=== PATIENT | female | born 1935 | race Caucasian/White ===

== ENCOUNTER 2021-05-13 12:38 | Inpatient (IN) ==
[2021-05-13 13:35] LABS: Hematocrit (blood only) 46.2 % (37-47); Hemoglobin 15.2 g/dL (12.0-16.0); Mean Corpuscular Hemoglobin 29.3 pg (25-34); Mean Corpuscular Hgb Conc 32.9 g/dL (32-36); Mean Platelet Volume 11.7 fL (7.4-10.4); Platelet Count 216 K/uL (130-400); RDW Coefficient of Variation 13.8 % (11.5-14.5); RDW Standard Deviation 45.3 fL (36.4-46.3); Red Blood Count 5.19 M/uL (4.2-5.4); White Blood Count 7.54 K/uL (4.8-10.8)
[2021-05-13 13:50] LABS: Alanine Aminotransferase 23 U/L (12-78); Albumin Level 3.1 gm/dl (3.4-5.0); Aspartate Aminotransferase 36 U/L (15-37); BUN Creatinine Ratio 17.9 (10-20); Blood Urea Nitrogen 41 mg/dl (7-18); Calcium 9.2 mg/dl (8.5-10.1); Carbon Dioxide 22 mmol/L (21-32); Chloride 103 mmol/L (98-107); Est GFR (African American) 21.6 ml/min; Est GFR (Non-African American) 18.6 ml/min; Glucose 114 mg/dl (70-99); Potassium 4.4 mmol/L (3.5-5.1); Sodium 134 mmol/L (136-145)
[2021-05-13 13:53] LABS: Albumin Globulin Ratio 0.7 (0.9-2); Alkaline Phosphatase 80 U/L (45-117); Bilirubin,Total 1.2 mg/dl (0.2-1); Globulin 4.2 gm/dl (2.5-4.0); Total Protein 7.3 gm/dl (6.4-8.2)
[2021-05-13 13:56] LABS: Partial Thromboplastin Ratio 2.2; Prothrombin Time 69.7 Seconds (9.0-12.0)
[2021-05-13 14:13] LABS: Partial Thromboplastin Time 56.8 Seconds (21.0-31.0)
[2021-05-13 14:14] LABS: INR 8.1 (0.9-1.1)
[2021-05-13 15:00] LABS: Basophils # (auto) 0.02 K/uL (0-0.2); Basophils % (auto) 0.3 %; Echinocytes 1+; Eosinophils # (auto) 0.04 K/uL (0-0.5); Eosinophils % (auto) 0.5 %; Immature Granulocytes # (auto) 0.03 K/uL (0.00-0.02); Immature Granulocytes % (auto) 0.4 %; Lymphocytes # (auto) 1.05 K/uL (1.2-3.4); Lymphocytes % (auto) 13.9 %; Monocytes # (auto) 0.87 K/uL (0.11-0.59); Monocytes % (auto) 11.5 %; Neutrophils # (auto) 5.53 K/uL (1.4-6.5); Neutrophils % (auto) 73.4 %; Tear Drop Cells 1+
[2021-05-13] MEDS ORDERED: SODIUM CHLORIDE 0.9% 1000ML 1,000 ML IV ONE (15:21)
[2021-05-13] MEDS ORDERED: PHYTONADIONE 10 MG in SODIUM CHLORIDE 0.9% 50 ML IV ONE (15:24)
--- NOTE | 2021-05-13 15:36 | Emergency Department Note ---
Impression & Plan Acute GI bleeding, Elevated INR, DUNIA (acute kidney injury), Pneumonia due to COVID-19 virus ED Provider Note NAME: TYRELL CASEY AGE: 85 SEX: F : 1935 ARRIVES VIA: Walk-In INFORMANT: Patient ED PROVIDER(S): Loc Feldman DO CHIEF COMPLAINT: weak HPI: Patient is an 85-year-old female who presents ER for weakness. She notes that she has had dark tarry stools for the past week associated with diarrhea. She was going about 5-8 times a day. She admits to lightheadedness with moving. No belly pain. Denies any dysuria, urgency, or frequency. No headache or change in vision. No chest pain or shortness of breath. No other exacerbating or remitting factors. ROS: See above HPI for pertinent positives & negatives. A total of 10 systems reviewed and were otherwise negative. PAST MEDICAL HISTORY:See Below PAST SURGICAL HISTORY:See Below FAMILY HISTORY:See Below SOCIAL HISTORY:See Below HOME MEDICATIONS:See Below ALLERGIES:See Below VITALS:See Below PHYSICAL EXAMINATION: GENERAL: Sitting up in bed, alert, well appearing, well nourished, no distress, non-toxic EYE EXAM: normal conjunctiva. OROPHARYNX: no exudate, no erythema, lips, buccal mucosa, and tongue normal and mucous membranes are moist NECK: supple, no nuchal rigidity, no adenopathy, non-tender LUNGS: Clear to auscultation. Normal chest wall mechanics HEART: no murmurs, S1 normal and S2 normal ABDOMEN: abdomen soft, non-tender, normo-active bowel sounds, no masses, no rebound or guarding. BACK: Back is symmetrical on inspection and there is no deformity, no midline tenderness, no CVA tenderness. SKIN: no rashes and no bruising UPPER EXTREMITIES: upper extremities are grossly normal. LOWER EXTREMITIES: No pitting edema. NEURO EXAM: Normal sensorium, cranial nerves II-XII grossly intact, normal speech, no gross weakness of arms, no gross weakness of legs. MEDICAL DECISION MAKING: Patient is an 85-year-old female who presents the ER for 1 week of black stools/diarrhea got about 5-6 times a day. Admits to lightheadedness and weakne ss. IV was demonstrated was obtained. Labs show no significant leukocytosis or anemia. INR was elevated at 8.1. She is on the secondary to A. fib. BMP with a creatinine of 2.3 up from baseline of 1. LFTs bilirubin was unremarkable. Patient is Covid positive. Patient was typed and screened. She is given IV fluids. Pressures trended up from the 80s to low 100s. She was updated bedside. Discussed with the hospitalist. She was given IV vitamin K to reverse her Coumadin level. She does have a bioprosthetic valve but not a mechanical valve for mitral valve. She was updated admitted for further work-up. Triage Nursing notes reviewed. Limited review of prior medical records performed Vital Signs: reviewed and remarkable for no significant abnormalities Differential diagnosis: Infection, dehydration, metabolic abnormality, hypo/hyperglycemia, electrolyte disturbance, anemia, hypoxia, cardiac sources, intracerebral event, toxicologic, neurologic, as well as other pathologies. ER treatment provided: See below Diagnostics interpreted by me: ECG: A. fib rate 80 Right axis T wave inversion in septal leads QTC 459 Cardiac Monitoring: An order was placed for continuous cardiac monitoring. The monitor shows a rate of 82 with A. fib rhythm. Laboratory studies: As stated above and show below. Imaging studies: See below Consultation(s): Discussed the hospitalist for further evaluation Procedures: none Critical Care: I have personally spent 32 minutes of critical care time in the direct giovani gement of this patient. This includes bedside care, interpretation of diagnostic studies, and testing, discussion with consultants, patient, and family members, and other required patient management activities. This 32 minutes is in excess of all separately billable procedures. Past Med/Surg History Medical History Chronic diastolic heart failure Chronic kidney disease, stage 3 (moderate) Congestive heart failure COPD (chronic obstructive pulmonary disease) Coronary artery disease Dementia First degree AV block GERD (gastroesophageal reflux disease) Hyperlipidemia Hypertension Hypothyroidism Impaired fasting glucose Osteoarthritis Permanent atrial fibrillation Pulmonary hypertension Right bundle branch block 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 Surgical History H/O total hysterectomy with bilateral salpingo-oophorectomy (BSO) History of back surgery S/P aortic valve replacement with bioprosthetic valve (11/28/14) S/P appendectomy Family History Father Myocardial infarction Brother Lewy body dementia Sister Dementia Son , age 16 Leukemia Other Hypertension Denies family history of Ovarian cancer Prostate cancer Breast cancer Colorectal cancer Social History Smoking Status: Never smoker Second Hand Exposure: No; Hx Alcohol Use: Yes Hx Substance Use: No Visual Impairment: Limited Hearing Ability: Normal Senior Market Research Analyst Required: No Beliefs That Will Affect Care: None marital status: / Current Living Situation: Alone Current Living Situation Comment: at [facility] current occupational status: retired How many Children do You have: 3 How many Children do You have Comment: 1 daughter, 2 sons (lost son age 16 w/ leukemia) Feels Safe at Home: Yes caffeine: Yes during the past year weight has: remained stable Dental Care, Regularly: Yes Physical Activity Frequency: Daily Seatbelt Use: always Sunscreen Use: No Allergies Allergies Allergy/AdvReac Type Severity Reaction Status Date / Time No Known Drug Allergies Allergy nkda Verified 05/13/21 16:25 Home Meds Home Medications Medication Instructions Recorded Confirmed sertraline 25 mg tablet 50 mg PO DAILY tab 09/19/20 05/13/21 alendronate 70 mg tablet (Fosamax) 70 mg PO WK tab 05/02/21 05/13/21 dorzolamide 22.3 mg-timolol 6.8 1 drp OPB BID 05/13/21 05/13/21 mg/mL eye drops latanoprost 0.005 % eye drops 1 drp OPB HS 05/13/21 05/13/21 polyethylene glycol 3350 17 17 gm PO DAILY PRN 05/13/21 05/13/21 gram/dose oral powder (Miralax) warfarin 2 mg tablet 2 mg PO UD 05/13/21 05/13/21 Previous Rx's Medication Instructions Recorded calcium carbonate 600 mg (1,500 1 tab PO BID #60 tab 01/12/20 mg)-vitamin D3 200 unit tablet (Calcium 600 + D(3)) amlodipine 5 mg tablet 5 mg PO BID #180 tab 10/01/20 furosemide 20 mg tablet 10 mg PO DAILY #45 tab 10/04/20 losartan 100 mg tablet 100 mg PO DAILY #90 tab 12/06/20 metoprolol succinate 25 mg 25 mg PO DAILY #90 tab 12/06/20 tablet,extended release 24 hr spironolactone 25 mg tablet 12.5 mg PO DAILY #45 tab 12/11/20 trazodone 50 mg tablet 25 mg PO HS #90 tab 03/13/21 atorvastatin 80 mg tablet 80 mg PO DAILY #90 tab 03/21/21 donepezil 5 mg tablet 5 mg PO DAILY 90 Days #90 tab 04/02/21 levothyroxine 50 mcg tablet 50 mcg PO DAILY #90 tab 04/24/21 Results & Data (ED) Vital Signs Vital Signs - 24 hr 05/13/21 12:47 05/13/21 15:47 05/13/21 16:01 Temperature 36.5 C Temperature Source Temporal Artery Scan Pulse Rate 90 77 Pulse Rate [Apical] Pulse Rate from SpO2 Sensor Respiratory Rate 18 17 Respiratory Effort / Characteristics Respiratory Depth Respiratory Pattern Blood Pressure 86/56 L 89/59 L 108/52 L Blood Pressure [Right Arm] Blood Pressure Mean 66 69 70 Blood Pressure Mean [Right Arm] Pulse Oximetry 92 Oxygen Delivery Method Room Air Sepsis Recent Fever Within 48 Hours No Sepsis New/Unexplained Change in Mental Status No Sepsis Action Taken by Nursing No Action Required 05/13/21 16:05 05/13/21 16:30 05/13/21 17:00 Temperature Temperature Source Pulse Rate 77 73 Pulse Rate [Apical] 78 Pulse Rate from SpO2 Sensor 72 Respiratory Rate 20 20 17 Respiratory Effort / Characteristics Non-Labored Spontaneous Respiratory Depth Normal Respiratory Pattern Regular Blood Pressure 103/63 91/48 L Blood Pressure [Right Arm] 108/52 L Blood Pressure Mean 76 62 Blood Pressure Mean [Right Arm] 70 Pulse Oximetry 94 97 Oxygen Delivery Method Room Air Sepsis Recent Fever Within 48 Hours Sepsis New/Unexplained Change in Mental Status Sepsis Action Taken by Nursing 05/13/21 17:30 Temperature Temperature Source Pulse Rate 77 Pulse Rate [Apical] Pulse Rate from SpO2 Sensor 83 Respiratory Rate 22 Respiratory Effort / Characteristics Respiratory Depth Respiratory Pattern Blood Pressure 102/51 L Blood Pressure [Right Arm] Blood Pressure Mean 68 Blood Pressure Mean [Right Arm] Pulse Oximetry 96 Oxygen Delivery Method Sepsis Recent Fever Within 48 Hours Sepsis New/Unexplained Change in Mental Status Sepsis Action Taken by Nursing Laboratory Data Result diagrams: 05/13/21 12:54 05/13/21 12:54 Lab Results 08/23/21 08/23/21 08/23/21 Range/Units 12:54 12:54 12:54 WBC 7.54 (4.8-10.8) K/uL RBC 5.19 (4.2-5.4) M/uL Hgb 15.2 (12.0-16.0) g/dL Hct 46.2 (37-47) % MCV 89.0 (80-100) fL MCH 29.3 (25-34) pg MCHC 32.9 (32-36) g/dL RDW Std Deviation 45.3 (36.4-46.3) fL RDW Coeff of Jhon 13.8 (11.5-14.5) % Plt Count 216 (130-400) K/uL MPV 11.7 H (7.4-10.4) fL Immature Gran % (Auto) 0.4 % Neut % (Auto) 73.4 % Lymph % (Auto) 13.9 % Mccormick % (Auto) 11.5 % Eos % (Auto) 0.5 % Baso % (Auto) 0.3 % Neut # (Auto) 5.53 (1.4-6.5) K/uL Lymph # (Auto) 1.05 L (1.2-3.4) K/uL Mccormick # (Auto) 0.87 H (0.11-0.59) K/uL Eos # (Auto) 0.04 (0-0.5) K/uL Baso # (Auto) 0.02 (0-0.2) K/uL Immature Gran # (Auto) 0.03 H (0.00-0.02) K/uL Tear Drop Cells 1+ Echinocytes 1+ PT 69.7 H (9.0-12.0) Seconds INR 8.1 H* (0.9-1.1) APTT 56.8 H* (21.0-31.0) Seconds PTT Ratio 2.2 Sodium 134 L (136-145) mmol/L Potassium 4.4 (3.5-5.1) mmol/L Chloride 103 (98-107) mmol/L Carbon Dioxide 22 (21-32) mmol/L Anion Gap 9.0 (3-11) BUN 41 H (7-18) mg/dl Creatinine 2.30 H (0.6-1.2) mg/dl Est Cr Clr Drug Dosing Not Reportable Est GFR ( Amer) 21.6 ml/min Est GFR (Non-Af Amer) 18.6 ml/min BUN/Creatinine Ratio 17.9 (10-20) Glucose 114 H (70-99) mg/dl Calcium 9.2 (8.5-10.1) mg/dl Total Bilirubin 1.2 H (0.2-1) mg/dl AST 36 (15-37) U/L ALT 23 (12-78) U/L Alkaline Phosphatase 80 (45-117) U/L Troponin I (0-0.045) ng/ml Total Protein 7.3 (6.4-8.2) gm/dl Albumin 3.1 L (3.4-5.0) gm/dl Globulin 4.2 H (2.5-4.0) gm/dl Albumin/Globulin Ratio 0.7 L (0.9-2) COVID-19 Eval Order SARS-CoV-2 (PCR) (Negative) Blood Type Antibody Screen 05/13/21 05/13/21 05/13/21 Range/Units 12:54 13:20 16:09 WBC (4.8-10.8) K/uL RBC (4.2-5.4) M/uL Hgb (12.0-16.0) g/dL Hct (37-47) % MCV (80-100) fL MCH (25-34) pg MCHC (32-36) g/dL RDW Std Deviation (36.4-46.3) fL RDW Coeff of Jhon (11.5-14.5) % Plt Count (130-400) K/uL MPV (7.4-10.4) fL Immature Gran % (Auto) % Neut % (Auto) % Lymph % (Auto) % Mccormick % (Auto) % Eos % (Auto) % Baso % (Auto) % Neut # (Auto) (1.4-6.5) K/uL Lymph # (Auto) (1.2-3.4) K/uL Mccormick # (Auto) (0.11-0.59) K/uL Eos # (Auto) (0-0.5) K/uL Baso # (Auto) (0-0.2) K/uL Immature Gran # (Auto) (0.00-0.02) K/uL Tear Drop Cells Echinocytes PT (9.0-12.0) Seconds INR (0.9-1.1) APTT (21.0-31.0) Seconds PTT Ratio Sodium (136-145) mmol/L Potassium (3.5-5.1) mmol/L Chloride (98-107) mmol/L Carbon Dioxide (21-32) mmol/L Anion Gap (3-11) BUN (7-18) mg/dl Creatinine (0.6-1.2) mg/dl Est Cr Clr Drug Dosing Est GFR ( Amer) ml/min Est GFR (Non-Af Amer) ml/min BUN/Creatinine Ratio (10-20) Glucose (70-99) mg/dl Calcium (8.5-10.1) mg/dl Total Bilirubin (0.2-1) mg/dl AST (15-37) U/L ALT (12-78) U/L Alkaline Phosphatase (45-117) U/L Troponin I < 0.015 (0-0.045) ng/ml Total Protein (6.4-8.2) gm/dl Albumin (3.4-5.0) gm/dl Globulin (2.5-4.0) gm/dl Albumin/Globulin Ratio (0.9-2) COVID-19 Eval Order Covid19 at [facility] SARS-CoV-2 (PCR) (Negative) Blood Type O Negative Antibody Screen POSITIVE A 05/13/21 Range/Units 16:09 WBC (4.8-10.8) K/uL RBC (4.2-5.4) M/uL Hgb (12.0-16.0) g/dL Hct (37-47) % MCV (80-100) fL MCH (25-34) pg MCHC (32-36) g/dL RDW Std Deviation (36.4-46.3) fL RDW Coeff of Jhon (11.5-14.5) % Plt Count (130-400) K/uL MPV (7.4-10.4) fL Immature Gran % (Auto) % Neut % (Auto) % Lymph % (Auto) % Mccormick % (Auto) % Eos % (Auto) % Baso % (Auto) % Neut # (Auto) (1.4-6.5) K/uL Lymph # (Auto) (1.2-3.4) K/uL Mccormick # (Auto) (0.11-0.59) K/uL Eos # (Auto) (0-0.5) K/uL Baso # (Auto) (0-0.2) K/uL Immature Gran # (Auto) (0.00-0.02) K/uL Tear Drop Cells Echinocytes PT (9.0-12.0) Seconds INR (0.9-1.1) APTT (21.0-31.0) Seconds PTT Ratio Sodium (136-145) mmol/L Potassium (3.5-5.1) mmol/L Chloride (98-107) mmol/L Carbon Dioxide (21-32) mmol/L Anion Gap (3-11) BUN (7-18) mg/dl Creatinine (0.6-1.2) mg/dl Est Cr Clr Drug Dosing Est GFR ( Amer) ml/min Est GFR (Non-Af Amer) ml/min BUN/Creatinine Ratio (10-20) Glucose (70-99) mg/dl Calcium (8.5-10.1) mg/dl Total Bilirubin (0.2-1) mg/dl AST (15-37) U/L ALT (12-78) U/L Alkaline Phosphatase (45-117) U/L Troponin I (0-0.045) ng/ml Total Protein (6.4-8.2) gm/dl Albumin (3.4-5.0) gm/dl Globulin (2.5-4.0) gm/dl Albumin/Globulin Ratio (0.9-2) COVID-19 Eval Order SARS-CoV-2 (PCR) POSITIVE A* (Negative) Blood Type Antibody Screen Administered Medications Discontinued Medications Sodium Chloride (Nss 1000ml) 1,000 mls @ 999 mls/hr IV .[id number] ONE Stop: 05/13/21 16:21 Last Infusion: 05/13/21 17:30 Dose: 0 mls/hr Documented by: [id number] Admin: 05/13/21 16:22 Dose: 999 mls/hr Documented by: [id number] Phytonadione 10 mg/ Sodium (Chloride) 51 mls @ 102 mls/hr IV ONE ONE Stop: 05/13/21 15:53 Last Infusion: 05/13/21 16:59 Dose: 0 mls/hr Documented by: [id number] Admin: 05/13/21 16:23 Dose: 102 mls/hr Documented by: [id number] Pantoprazole Sodium 40 mg/ (Syringe) 10 mls @ 5 mls/min IV NOW STA Stop: 05/13/21 16:45 Last Admin: 05/13/21 17:39 Dose: 5 mls/min Documented by: [id number] Discharge Plan Visit Data Chief Complaint: Illness Stated Complaint: black stool, Dr ref ED Provider: Loc Feldman Discharge Problem: Acute GI bleeding, Elevated INR, DUNIA (acute kidney injury), Pneumonia due to COVID-19 virus Forms Stand Alone Forms: My [facility] Peixe Urbano Prescriptions Prescriptions: No Action amlodipine 5 mg tablet 5 mg PO BID Qty: 180 RF: 2 furosemide 20 mg tablet 10 mg PO DAILY Qty: 45 RF: 3 losartan 100 mg tablet 100 mg PO DAILY Qty: 90 RF: 1 metoprolol succinate 25 mg tablet extended release 24 hr 25 mg PO DAILY Qty: 90 RF: 1 spironolactone 25 mg tablet 12.5 mg PO DAILY Qty: 45 RF: 1 trazodone 50 mg tablet 25 mg PO HS Qty: 90 RF: 1 atorvastatin 80 mg tablet 80 mg PO DAILY Qty: 90 RF: 1 donepezil 5 mg tablet 5 mg PO DAILY 90 Days Qty: 90 RF: 1 levothyroxine 50 mcg tablet 50 mcg PO DAILY Qty: 90 RF: 1 calcium carbonate-vitamin D3 [Calcium 600 + D(3)] 600 mg(1,500mg) -200 unit tablet 1 tab PO BID Qty: 60 RF: 0 sertraline 25 mg tablet 50 mg PO DAILY RF: 0 alendronate [Fosamax] 70 mg tablet 70 mg PO WK RF: 0 latanoprost 0.005 % drops 1 drp OPB HS RF: 0 dorzolamide-timolol 22.3-6.8 mg/mL drops 1 drp OPB BID RF: 0 warfarin 2 mg tablet 2 mg PO UD RF: 0 polyethylene glycol 3350 [Miralax] 17 gram/dose powder 17 gm PO DAILY PRN (Reason: Constipation) RF: 0 Referrals Referrals: Nina Christian DO [Primary Care Provider] -
[2021-05-13] MEDS ORDERED: PANTOprazole 40 MG in SYRINGE 0 ML IV STA (16:44)
--- NOTE | 2021-05-13 16:58 | History & Physical Report ---
Date of Service May 13, 2021 Assessment & Plan (1) Upper GI bleed: Plan: Convincing story for upper GI bleed with black stools and supratherapeutic INR. That said, hgb remains stable, so likely not incredibly brisk rate of bleeding. - PPI bolus and gtt - Clears tonight and NPO at midnight for possible EGD - GI consulted - INR reversed in ED with vitamin K. Defer PCC or FFP at this time given stable hgb despite a week of black stools. - Follow INR - Good peripheral IVs - Monitor CBC (2) Hypotension: Plan: BP as low as 86/56 in the ED. Improved with 1L NS bolus, so I think more hypovolemia from diarrhea rather than hemorrhagic shock (as evidenced by stable hgb). - Gentle IV fluids - Monitor BP - Hold HTN meds (3) COVID-19: Plan: Incidental finding on screening test. Unless diarrhea is considered a symptom, not symptomatic. Good O2 sat on room air. - Isolation precautions given unknown when she might have contracted Covid. - Monitor respiratory status (4) Diarrhea: Plan: Likely from blood acting as motility agent. - C. diff, O&P, and stool culture all ordered by ED; monitor results (5) Chronic kidney disease, stage 3 (moderate): Plan: Acute kidney failure on CKD. Cr baseline ~1.2 - 1.3; up to 2.3 on admission. - IV fluids given in the ED; continue gentle IV fluids (6) Chronic diastolic heart failure: Plan: Presently appears hypovolemic on exam. - Holding Lasix - IV fluids as above - Monitor volume status (7) Permanent atrial fibrillation: Plan: Follows with Dr. Dias. Seen this month and was very stable. Had discussed a DOAC, but patient deferred given things were going well. - Hold warfarin - Hold metoprolol for now; monitor HR - Cardiology consulted to discuss possibly holding anticoagulation going forward. (8) Mitral valve replaced: Plan: Bioprosthetic valve. Given bleeding, will defer anticoagulation at this time. - Cardiology as above (9) Coronary artery disease: Plan: Hx of CAD. - Holding cardiac meds for GI bleed (10) Hypertension: Plan: On variety of agents at home. - Holding all home agents for transient hypotension in the ED (11) Hypothyroidism: Plan: TSH was 1.25 in 08/2020. No signs/symptoms of hypo-/hyperthyroidism. - Continue home Synthroid 50 mcg - Repeat TSH in AM (12) GERD (gastroesophageal reflux disease): Plan: Not on PPI/H2 at home. - PPI IV as above (13) DVT prophylaxis: Plan: SCDs - Holding heparin for GI bleed and high INR History of Present Illness Primary Care Provider: Nina Christian, DO 85yo F w/ hx of afib and bioprosthetic mitral valve who presents with likely u pper GI bleed. The patient reports that approx. 1 week ago she started to have watery, black diarrhea. She cannot pinpoint any inciting food or other cause. She has not taken any medications for it. She reports about 5 episodes per day, including overnight that have woken her up from sleep. It has not gotten much better or worse. She reports some loss of appetite, partially due to worrying about having to have BMs. She denies any abdominal pain, any nausea or vomiting, no other bleeding. No shortness of breath, no cough. No fevers/chills, or sweats. Allergies Allergy/AdvReac Type Severity Reaction Status Date / Time No Known Drug Allergies Allergy nkda Verified 05/13/21 16:25 Home Medications Medication Instructions Recorded Confirmed Type calcium carbonate 600 mg (1,500 1 tab PO BID #60 tab 01/12/20 05/13/21 Rx mg)-vitamin D3 200 unit tablet (Calcium 600 + D(3)) sertraline 25 mg tablet 50 mg PO DAILY tab 09/19/20 05/13/21 History amlodipine 5 mg tablet 5 mg PO BID #180 tab 10/01/20 05/13/21 Rx furosemide 20 mg tablet 10 mg PO DAILY #45 tab 10/04/20 05/13/21 Rx losartan 100 mg tablet 100 mg PO DAILY #90 tab 12/06/20 05/13/21 Rx metoprolol succinate 25 mg 25 mg PO DAILY #90 tab 12/06/20 05/13/21 Rx tablet,extended release 24 hr spironolactone 25 mg tablet 12.5 mg PO DAILY #45 tab 12/11/20 05/13/21 Rx trazodone 50 mg tablet 25 mg PO HS #90 tab 03/13/21 05/13/21 Rx atorvastatin 80 mg tablet 80 mg PO DAILY #90 tab 03/21/21 05/13/21 Rx donepezil 5 mg tablet 5 mg PO DAILY 90 Days #90 tab 04/02/21 05/13/21 Rx levothyroxine 50 mcg tablet 50 mcg PO DAILY #90 tab 04/24/21 05/13/21 Rx alendronate 70 mg tablet (Fosamax) 70 mg PO WK tab 05/02/21 05/13/21 History dorzolamide 22.3 mg-timolol 6.8 1 drp OPB BID 05/13/21 05/13/21 History mg/mL eye drops latanoprost 0.005 % eye drops 1 drp OPB HS 05/13/21 05/13/21 History polyethylene glycol 3350 17 17 gm PO DAILY PRN 05/13/21 05/13/21 History gram/dose oral powder (Miralax) warfarin 2 mg tablet 2 mg PO UD 05/13/21 05/13/21 History Past Med/Surg History Medical History Chronic diastolic heart failure Chronic kidney disease, stage 3 (moderate) Congestive heart failure COPD (chronic obstructive pulmonary disease) Coronary artery disease Dementia First degree AV block GERD (gastroesophageal reflux disease) Hyperlipidemia Hypertension Hypothyroidism Impaired fasting glucose Osteoarthritis Permanent atrial fibrillation Pulmonary hypertension Right bundle branch block 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 Surgical History H/O total hysterectomy with bilateral salpingo-oophorectomy (BSO) History of back surgery S/P aortic valve replacement with bioprosthetic valve (11/28/14) S/P appendectomy Family History Father Myocardial infarction Brother Lewy body dementia Sister Dementia Son , age 16 Leukemia Other Hypertension Denies family history of Ovarian cancer Prostate cancer Breast cancer Colorectal cancer Social History Smoking Status: Former smoker Second Hand Exposure: No; Hx Alcohol Use: Yes Alcohol type: wine Hx Substance Use: No Preferred Language: Chinese Visual Impairment: Limited Hearing Ability: Normal Chronometer Tester Required: No Beliefs That Will Affect Care: Hinduism marital status: / Current Living Situation: Personal Care Facility Current Living Situation Comment: [facility] current occupational status: retired How many Children do You have: 3 How many Children do You have Comment: 1 daughter, 2 sons (lost son age 16 w/ leukemia) Other Information That Helps Us Care for You: No Feels Safe at Home: Yes Safety Concerns: Feels Safe At This Time caffeine: Yes during the past year weight has: remained stable Dental Care, Regularly: Yes Physical Activity Frequency: Daily Seatbelt Use: always Sunscreen Use: No Assistive Devices: Glasses and Walker Review of Systems Review of Systems: All systems reviewed & are unremarkable except as noted in HPI & below Physical Exam Constitutional: WD/WN, vitals as above Eyes: EOM intact bilaterally; no conjunctival abnormality ENMT: external ear and nose normal, oropharynx normal Neck: trachea midline, no thyromegaly normal visual inspection Respiratory: normal respiratory effort, lungs clear to auscultation no respiratory distress Cardiovascular: RRR, no murmur, no edema Gastrointestinal (Abdomen): Inspection/Auscultation: abdomen normal to inspection; abdomen not distended Musculoskeletal: no cyanosis or clubbing, extremities motor strength 5/5 Skin: no rashes, warm and dry Neurologic: moves all extremities and awake Psychiatric: Orientation: alert, oriented to person and cooperative Results & Data Results & Data ([facility]) Vital Signs (Past 12 Hours) Vital Signs Temp Pulse Pulse Resp BP BP Pulse Ox 05/13/21 16:05 78 20 108/52 L 94 05/13/21 16:01 77 17 108/52 L 05/13/21 15:47 89/59 L 05/13/21 12:47 36.5 C 90 18 86/56 L 92 Code Status & VTE Plan VTE Prophylaxis Plan VTE Prophylaxis will be ordered: Yes PG Care Time/CCT Total # of Minutes Spent Total Time Spent with Patient: Total time spent is greater than 50% in coordination of care (as documented) at patient's floor/unit and/or counseling patient: Coding Level of Care Code 44647 Initial Inpt Care Lvl 3 Diagnoses Upper GI bleed K92.2 Permanent atrial fibrillation I48.21 Mitral valve replaced Z95.2 Hypertension I10 Hypothyroidism E03.9 GERD (gastroesophageal reflux disease) K21.9 Chronic kidney disease, stage 3 (moderate) N18.3 Coronary artery disease I25.10 DVT prophylaxis Z29.9 Diarrhea R19.7 Hypotension I95.9 Chronic diastolic heart failure I50.32 COVID-19 U07.1
[2021-05-13] MEDS ORDERED: ONDANSETRON INJ 2 MG/ML 2 ML VIAL IV PRN (19:11)
[2021-05-13] MEDS ORDERED: NORMOSOL-R 1,000 ML IV ONE (19:11)
[2021-05-13] MEDS ORDERED: ACETAMINOPHEN 325 MG TAB PO PRN (19:11)
[2021-05-13] MEDS: PANTOprazole 40 MG in DEXTROSE 5% 100 ML IV SCH (21:53)
[2021-05-13] MEDS: DORZOLAMIDE/TIMOLOL 22.3/6.8MG/ML 10 ML BTL OPB SCH (21:54)
[2021-05-13] MEDS: LATANOPROST 0.005% OP SOLN 2.5 ML BTL OPB SCH (21:54)
[2021-05-13] MEDS: traZODone HCL 50 MG TAB PO SCH (22:02)
[2021-05-13 22:16] LABS: Hematocrit (blood only) 45.5 % (37-47); Hemoglobin 15.1 g/dL (12.0-16.0)
[2021-05-14] MEDS: PANTOprazole 40 MG in DEXTROSE 5% 100 ML IV SCH ×4 (02:21→18:15)
[2021-05-14] MEDS: LEVOTHYROXINE SODIUM 50 MCG TABLET PO SCH (05:20)
[2021-05-14 06:26] LABS: Hematocrit (blood only) 43.1 % (37-47); Hemoglobin 13.9 g/dL (12.0-16.0); Mean Corpuscular Hemoglobin 28.5 pg (25-34); Mean Corpuscular Hgb Conc 32.3 g/dL (32-36); Mean Corpuscular Volume 88.5 fL (80-100); Mean Platelet Volume 11.9 fL (7.4-10.4); Platelet Count 212 K/uL (130-400); RDW Coefficient of Variation 13.7 % (11.5-14.5); RDW Standard Deviation 44.5 fL (36.4-46.3); Red Blood Count 4.87 M/uL (4.2-5.4); White Blood Count 5.62 K/uL (4.8-10.8)
[2021-05-14 06:30] LABS: INR 1.3 (0.9-1.1); Partial Thromboplastin Ratio 1.4; Partial Thromboplastin Time 36.1 Seconds (21.0-31.0)
[2021-05-14 07:01] LABS: Albumin Globulin Ratio 0.8 (0.9-2); Albumin Level 2.7 gm/dl (3.4-5.0); BUN Creatinine Ratio 25.2 (10-20); Bilirubin,Total 1.1 mg/dl (0.2-1); Calcium 8.4 mg/dl (8.5-10.1); Est GFR (African American) 35.6 ml/min; Est GFR (Non-African American) 30.7 ml/min; Globulin 3.4 gm/dl (2.5-4.0); Magnesium 2.3 mg/dl (1.8-2.4); Potassium 4.2 mmol/L (3.5-5.1); Thyroid Stimulating Hormone 0.734 uIu/ml (0.300-4.500); Total Protein 6.1 gm/dl (6.4-8.2)
[2021-05-14] MEDS: DORZOLAMIDE/TIMOLOL 22.3/6.8MG/ML 10 ML BTL OPB SCH ×2 (08:21→20:46)
[2021-05-14] MEDS: DONEPEZIL HCL 5 MG TAB PO SCH (08:21)
[2021-05-14] MEDS: SERTRALINE HCL 50 MG TABLET PO SCH (08:21)
--- NOTE | 2021-05-14 10:14 | Cardiology Consultation ---
Date of Consultation May 14, 2021 Assessment & Plan (1) Permanent atrial fibrillation: -has been on rate control long-term anticoagulation without difficulty until this admission. -INR supratherapeutic at 8.1 on presentation, currently at 1.3. -warfarin obviously on hold. (2) Coronary artery disease: -nonobstructive disease on catheterization in November 2014. -also had evidence of an LAD myocardial bridge. -quiescent on medical management. (3) Chronic diastolic heart failure: -no recent decompensation. (4) Mitral valve replaced: -s/p #29 car [place] [employer] Khan bovine pericardial valve. -she does not require long-term anticoagulation. -aspirin alone is recommended once she is able to take anti-platelet agents. History of Present Illness Attending Physician: Siva Douglass History of Present Illness Mrs. Espinal is an 85-year-old female admitted yesterday with melanotic stools and a supratherapeutic INR at 8.1. This consultation was ordered to assistance cardiac management. Of note, the patient is well known to me from the outpatient setting. The patient presented to the emergency room yesterday with a 1 week history of watery, black in diarrhea. She reports having approximately 5 episodes every day including several episodes that awaken her from sleep. The patient does take warfarin for her permanent atrial fibrillation. She has not experienced any exertional chest pain or limiting dyspnea. She further denies syncope, presyncope, PND, orthopnea, lower extremity edema, and claudication. The patient's cardiac history began in November 2014 when she experienced an epi sode of acute diastolic CHF. Her workup apparently revealed severe mitral regurgitation and she underwent mitral valve replacement with a #29 [place]- Khan bovine pericardial valve. Her preoperative cardiac catheterization revealed a 35% D1, a 35% LCx, a 70% non dominant RCA, and a mid LAD bridge. The patient has done well from a cardiac perspective since that time. She did have an echocardiogram performed in March of 2021 which noted normal left ventricular systolic function with an ejection fraction of 50-55%. There were no wall motion abnormalities. Her mitral prosthetic valve was functioning properly. There was mild aortic stenosis and moderate tricuspid regurgitation. The patient also carries a history of permanent atrial fibrillation. Suspect this occurred at the time of her cardiothoracic surgery in 2014. I have reviewed for EKGs since October 2018 and each demonstrates atrial fibrillation with a controlled ventricular response. Fortunately, the patient is completely asymptomatic in terms of her arrhythmia. Her medications reviewed in detail. Past medical and surgical history 1. Nonobstructive CAD-November 2014, see above 2. Chronic diastolic CHF 3. Hypertension 4. Hypercholesterolemia 5. Permanent atrial fibrillation 6. Mitral valve replacement-November 2014, see above 7. Moderate tricuspid regurgitation 8. RBBB 9. Hyperglycemia 10. COPD 11. Chronic renal failure 12. Hypothyroidism 13. Appendectomy 14. Hysterectomy 15. Lumbar laminectomy Social history Moved to [place] from [place], [place] Her daughter and son-in-law live in [place] No tobacco Rare alcohol Family history Noncontributory Review of systems A 10 point review systems was undertaken and negative except for that described above. Allergies Allergy/AdvReac Type Severity Reaction Status Date / Time No Known Drug Allergies Allergy nkda Verified 05/13/21 16:25 Home Medications Medication Instructions Recorded Confirmed Type calcium carbonate 600 mg (1,500 1 tab PO BID #60 tab 01/12/20 05/13/21 Rx mg)-vitamin D3 200 unit tablet (Calcium 600 + D(3)) sertraline 25 mg tablet 50 mg PO DAILY tab 09/19/20 05/13/21 History amlodipine 5 mg tablet 5 mg PO BID #180 tab 10/01/20 05/13/21 Rx furosemide 20 mg tablet 10 mg PO DAILY #45 tab 10/04/20 05/13/21 Rx losartan 100 mg tablet 100 mg PO DAILY #90 tab 12/06/20 05/13/21 Rx metoprolol succinate 25 mg 25 mg PO DAILY #90 tab 12/06/20 05/13/21 Rx tablet,extended release 24 hr spironolactone 25 mg tablet 12.5 mg PO DAILY #45 tab 12/11/20 05/13/21 Rx trazodone 50 mg tablet 25 mg PO HS #90 tab 03/13/21 05/13/21 Rx atorvastatin 80 mg tablet 80 mg PO DAILY #90 tab 03/21/21 05/13/21 Rx donepezil 5 mg tablet 5 mg PO DAILY 90 Days #90 tab 04/02/21 05/13/21 Rx levothyroxine 50 mcg tablet 50 mcg PO DAILY #90 tab 04/24/21 05/13/21 Rx alendronate 70 mg tablet (Fosamax) 70 mg PO WK tab 05/02/21 05/13/21 History dorzolamide 22.3 mg-timolol 6.8 1 drp OPB BID 05/13/21 05/13/21 History mg/mL eye drops latanoprost 0.005 % eye drops 1 drp OPB HS 05/13/21 05/13/21 History polyethylene glycol 3350 17 17 gm PO DAILY PRN 05/13/21 05/13/21 History gram/dose oral powder (Miralax) warfarin 2 mg tablet 2 mg PO UD 05/13/21 05/13/21 History Patient History Medical History Chronic diastolic heart failure Chronic kidney disease, stage 3 (moderate) Congestive heart failure COPD (chronic obstructive pulmonary disease) Coronary artery disease Dementia First degree AV block GERD (gastroesophageal reflux disease) Hyperlipidemia Hypertension Hypothyroidism Impaired fasting glucose Osteoarthritis Permanent atrial fibrillation Pulmonary hypertension Right bundle branch block 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 Surgical History H/O total hysterectomy with bilateral salpingo-oophorectomy (BSO) History of back surgery S/P aortic valve replacement with bioprosthetic valve (11/28/14) S/P appendectomy Family History Father Myocardial infarction Brother Lewy body dementia Sister Dementia Son , age 16 Leukemia Other Hypertension Denies family history of Ovarian cancer Prostate cancer Breast cancer Colorectal cancer Social History Smoking Status: Former smoker Second Hand Exposure: No; Hx Alcohol Use: Yes Alcohol type: wine Hx Substance Use: No Preferred Language: Irish Visual Impairment: Limited Hearing Ability: Normal Vp Strategy Required: No Beliefs That Will Affect Care: Jain marital status: / Current Living Situation: Personal Care Facility Current Living Situation Comment: at [facility] current occupational status: retired How many Children do You have: 3 How many Children do You have Comment: 1 daughter, 2 sons (lost son age 16 w/ leukemia) Other Information That Helps Us Care for You: No Feels Safe at Home: Yes Safety Concerns: Feels Safe At This Time caffeine: Yes during the past year weight has: remained stable Dental Care, Regularly: Yes Physical Activity Frequency: Daily Seatbelt Use: always Sunscreen Use: No Assistive Devices: Glasses and Walker Physical Exam Physical Exam: Exam per Dr. Vicente as patient in COVID isolation. Results & Data ([facility]) Vital Signs (Past 12 Hours) Vital Signs Temp Pulse Resp BP BP Pulse Ox 05/14/21 07:22 36.8 C 89 18 106/59 L 94 05/14/21 03:27 36.4 C L 68 18 97/58 L 94 05/13/21 23:52 37.0 C 76 18 99/58 L 93 PG Care Time/CCT Total # of Minutes Spent Total Time Spent with Patient: Total time spent is greater than 50% in coordination of care (as documented) at patient's floor/unit and/or counseling patient: Coding Level of Care Code 59029 Initial Inpt Care Lvl 3 Diagnoses Permanent atrial fibrillation I48.21 Coronary artery disease I25.10 Chronic diastolic heart failure I50.32 Mitral valve replaced Z95.2
--- NOTE | 2021-05-14 11:44 | Gastrointestinal Consultation ---
Date of Consultation May 14, 2021 Assessment & Plan (1) Elevated INR: (2) Melena: Patient is an 85 yo female with melena in the setting of supratherapeutic INR (>8). Given COVID19 positivity and hemodynamic stability, cannot justify medical necessity for emergent endoscopic evaluation. Would treat patient with Protonix 40 mg IV BID, Famotidine 20 mg IV BID, & Carafate 1 gm four times daily before meals and bedtime. Continue to follow H/H and clinical symptoms, but it does not appear patient has a brisk bleed at the present time. Would avoid NSAIDs. Can consider EGD in 1 month for further evaluation unless clinically deteriorating. Supervising Physician Co-Signing Physician Notes Agree with EL Calhoun as above Patient had INR reversed She is hemodynamically stable No plans for EGD at present due to hemodynamic stability as well as COVID infection History of Present Illness Reason for Consultation: Anemia, melena Attending Physician: Siva Douglass History of Present Illness Patient is an 85 yo female with PMH of Aortic stenosis, permanent A fib, chronic diastolic heart failure, dementia, neuropathy, DJD, hyothyroidism, HTN, GERD, COPD, CKD3, HLD, pulmonary hypertension, CAD, & tricuspid regurgitation. The patient noted upon presentation that she began to experience loose, dark stools one week ago occurring 3-5 times daily and occasionally waking her from a sound sleep. She had reported that she has not been experiencing abominal pain, heartburn, nausea, or vomiting. She is chronically anticoagulated with Coumadin for her permanent A fib. H/H is unremarkable--presently 13.9/43.1. INR was >8 on admission. This has since been reversed. Of note, patient is COVID19 positive. Allergies Allergy/AdvReac Type Severity Reaction Status Date / Time No Known Drug Allergies Allergy nkda Verified 05/13/21 16:25 Home Medications Medication Instructions Recorded Confirmed Type calcium carbonate 600 mg (1,500 1 tab PO BID #60 tab 01/12/20 05/13/21 Rx mg)-vitamin D3 200 unit tablet (Calcium 600 + D(3)) sertraline 25 mg tablet 50 mg PO DAILY tab 09/19/20 05/13/21 History amlodipine 5 mg tablet 5 mg PO BID #180 tab 10/01/20 05/13/21 Rx furosemide 20 mg tablet 10 mg PO DAILY #45 tab 10/04/20 05/13/21 Rx losartan 100 mg tablet 100 mg PO DAILY #90 tab 12/06/20 05/13/21 Rx metoprolol succinate 25 mg 25 mg PO DAILY #90 tab 12/06/20 05/13/21 Rx tablet,extended release 24 hr spironolactone 25 mg tablet 12.5 mg PO DAILY #45 tab 12/11/20 05/13/21 Rx trazodone 50 mg tablet 25 mg PO HS #90 tab 03/13/21 05/13/21 Rx atorvastatin 80 mg tablet 80 mg PO DAILY #90 tab 03/21/21 05/13/21 Rx donepezil 5 mg tablet 5 mg PO DAILY 90 Days #90 tab 04/02/21 05/13/21 Rx levothyroxine 50 mcg tablet 50 mcg PO DAILY #90 tab 04/24/21 05/13/21 Rx alendronate 70 mg tablet (Fosamax) 70 mg PO WK tab 05/02/21 05/13/21 History dorzolamide 22.3 mg-timolol 6.8 1 drp OPB BID 05/13/21 05/13/21 History mg/mL eye drops latanoprost 0.005 % eye drops 1 drp OPB HS 05/13/21 05/13/21 History polyethylene glycol 3350 17 17 gm PO DAILY PRN 05/13/21 05/13/21 History gram/dose oral powder (Miralax) warfarin 2 mg tablet 2 mg PO UD 05/13/21 05/13/21 History Patient History Medical History Chronic diastolic heart failure Chronic kidney disease, stage 3 (moderate) Congestive heart failure COPD (chronic obstructive pulmonary disease) Coronary artery disease Dementia First degree AV block GERD (gastroesophageal reflux disease) Hyperlipidemia Hypertension Hypothyroidism Impaired fasting glucose Osteoarthritis Permanent atrial fibrillation Pulmonary hypertension Right bundle branch block 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 Surgical History H/O total hysterectomy with bilateral salpingo-oophorectomy (BSO) History of back surgery S/P aortic valve replacement with bioprosthetic valve (11/28/14) S/P appendectomy Family History Father Myocardial infarction Brother Lewy body dementia Sister Dementia Son , age 16 Leukemia Other Hypertension Denies family history of Ovarian cancer Prostate cancer Breast cancer Colorectal cancer Social History Smoking Status: Former smoker Second Hand Exposure: No; Hx Alcohol Use: Yes Alcohol type: wine Hx Substance Use: No Preferred Language: Malay Visual Impairment: Limited Hearing Ability: Normal Header Boss Required: No Beliefs That Will Affect Care: Protestant marital status: / Current Living Situation: Personal Care Facility Current Living Situation Comment: at [facility] current occupational status: retired How many Children do You have: 3 How many Children do You have Comment: 1 daughter, 2 sons (lost son age 16 w/ leukemia) Other Information That Helps Us Care for You: No Feels Safe at Home: Yes Safety Concerns: Feels Safe At This Time caffeine: Yes during the past year weight has: remained stable Dental Care, Regularly: Yes Physical Activity Frequency: Daily Seatbelt Use: always Sunscreen Use: No Assistive Devices: Glasses and Walker Review of Systems Review of Systems: Other (Evaluation completed by chart review due to COVID19 positivity and isolation) Physical Exam Physical Exam: Evaluation completed by chart review due to COVID19 positivity and isolation Results & Data ([facility]) Vital Signs (Past 12 Hours) Vital Signs Temp Pulse Resp BP BP Pulse Ox 05/14/21 07:22 36.8 C 89 18 106/59 L 94 05/14/21 03:27 36.4 C L 68 18 97/58 L 94 05/13/21 23:52 37.0 C 76 18 99/58 L 93 PG Care Time/CCT Total # of Minutes Spent Total Time Spent with Patient: Total time spent is greater than 50% in coordination of care (as documented) at patient's floor/unit and/or counseling patient: Coding Level of Care Code 17934 Initial Inpt Care Lvl 2 Diagnoses Elevated INR R79.1 Melena K92.1
[2021-05-14 12:44] LABS: Hemoglobin 13.4 g/dL (12.0-16.0)
[2021-05-14] MEDS: PSYLLIUM 58.6% POWDER PACKET PO SCH (12:55)
[2021-05-14] MEDS: FAMOTIDINE 20 MG in SYRINGE 3 ML IV SCH ×2 (12:55→21:05)
[2021-05-14] MEDS: SUCRALFATE 1 GM/10 ML UDC PO SCH ×3 (12:56→20:47)
[2021-05-14] MEDS: LATANOPROST 0.005% OP SOLN 2.5 ML BTL OPB SCH (20:46)
--- NOTE | 2021-05-14 21:01 | Hospitalist Progress Note ---
Date of Service May 14, 2021 Assessment & Plan (1) Upper GI bleed: Plan: Convincing story for upper GI bleed with black stools and supratherapeutic INR. That said, hgb remains stable, so likely not incredibly brisk rate of bleeding. - PPI bolus and gtt - it appears to have subsided. -GI team will hold off Upper Gi scope as it is not urgent. -INR is reversed. - GI consulted - INR reversed in ED with vitamin K. Defer PCC or FFP at this time given stable hgb despite a week of black stools. - Follow INR - Good peripheral IVs - Monitor CBC (2) Hypotension: Plan: BP as low as 86/56 in the ED. Improved with 1L NS bolus, so I think more hypovolemia from diarrhea rather than hemorrhagic shock (as evidenced by stable hgb). - Gentle IV fluids - Monitor BP - Hold HTN meds (3) COVID-19: Plan: Incidental finding on screening test. Unless diarrhea is considered a symptom, not symptomatic. Good O2 sat on room air. - Isolation precautions given unknown when she might have contracted Covid. - Monitor respiratory status (4) Diarrhea: Plan: Likely from blood acting as motility agent. - C. diff, O&P, and stool culture all ordered by ED; monitor results (5) Chronic kidney disease, stage 3 (moderate): Plan: Acute kidney failure on CKD. Cr baseline ~1.2 - 1.3; up to 2.3 on admission. - IV fluids given in the ED; continue gentle IV fluids (6) Chronic diastolic heart failure: Plan: Presently appears hypovolemic on exam. - Holding Lasix - IV fluids as above - Monitor volume status (7) Permanent atrial fibrillation: Plan: Follows with Dr. Dias. Seen this month and was very stable. Had discussed a DOAC, but patient deferred given things were going well. - Hold warfarin - Hold metoprolol for now; monitor HR - Cardiology consulted to discuss possibly holding anticoagulation going forward. (8) Mitral valve replaced: Plan: Bioprosthetic valve. Given bleeding, will defer anticoagulation at this time. - Cardiology as above (9) Coronary artery disease: Plan: Hx of CAD. - Holding cardiac meds for GI bleed (10) Hypertension: Plan: On variety of agents at home. - Holding all home agents for transient hypotension in the ED (11) Hypothyroidism: Plan: TSH was 1.25 in 08/2020. No signs/symptoms of hypo-/hyperthyroidism. - Continue home Synthroid 50 mcg - Repeat TSH in AM (12) GERD (gastroesophageal reflux disease): Plan: Not on PPI/H2 at home. - PPI IV as above (13) DVT prophylaxis: Plan: SCDs - Holding heparin for GI bleed and high INR Admission and Anticipated Discharge Date Admission Date: May 13, 2021 Subjective 85 yo female reports feeling better. She is having less diarrhea. It is no longer dark, it is clear. Review of Systems Review of Systems: All systems reviewed & are unremarkable except as noted in HPI & below Physical Exam Physical Exam: Constitutional: WD/WN, vitals as above Eyes: EOM intact bilaterally; no conjunctival abnormality ENMT: external ear and nose normal, oropharynx normal Neck: trachea midline, no thyromegaly normal visual inspection Respiratory: normal respiratory effort, lungs clear to auscultation no respiratory distress Cardiovascular: RRR, no murmur, no edema Gastrointestinal (Abdomen): Inspection/Auscultation: abdomen normal to inspection; abdomen not distended Musculoskeletal: no cyanosis or clubbing, extremities motor strength 5/5 Skin: no rashes, warm and dry Neurologic: moves all extremities and awake Psychiatric: Orientation: alert, oriented to person and cooperative Results & Data Results & Data ([facility]) Vital Signs (Past 12 Hours) Vital Signs Temp Pulse Pulse Resp BP Pulse Ox 05/14/21 19:30 36.8 C 87 20 113/69 91 05/14/21 17:31 88 05/14/21 15:34 36.9 C 75 18 107/60 95 05/14/21 12:00 36.7 C 98 H 18 115/70 93 PG Care Time/CCT Total # of Minutes Spent Total Time Spent with Patient: Total time spent is greater than 50% in coordination of care (as documented) at patient's floor/unit and/or counseling patient: Coding Level of Care Code 20764 Subseq Hosp Care Lvl 2 Diagnoses Upper GI bleed K92.2 Hypotension I95.9 COVID-19 U07.1 Diarrhea R19.7 Chronic kidney disease, stage 3 (moderate) N18.3 Chronic diastolic heart failure I50.32 Permanent atrial fibrillation I48.21 Mitral valve replaced Z95.2 Coronary artery disease I25.10 Hypertension I10 Hypothyroidism E03.9 GERD (gastroesophageal reflux disease) K21.9 DVT prophylaxis Z29.9 Time Spent (min) 25
[2021-05-14] MEDS: traZODone HCL 50 MG TAB PO SCH (21:04)
[2021-05-15] MEDS: PANTOprazole 40 MG in DEXTROSE 5% 100 ML IV SCH ×6 (00:06→21:13)
[2021-05-15] MEDS: LEVOTHYROXINE SODIUM 50 MCG TABLET PO SCH (05:25)
[2021-05-15] MEDS: DONEPEZIL HCL 5 MG TAB PO SCH (08:30)
[2021-05-15] MEDS: FAMOTIDINE 20 MG in SYRINGE 3 ML IV SCH ×2 (08:30→20:48)
[2021-05-15] MEDS: SERTRALINE HCL 50 MG TABLET PO SCH (08:30)
[2021-05-15] MEDS: PSYLLIUM 58.6% POWDER PACKET PO SCH (08:30)
[2021-05-15] MEDS: DORZOLAMIDE/TIMOLOL 22.3/6.8MG/ML 10 ML BTL OPB SCH ×2 (08:30→20:39)
[2021-05-15] MEDS: SUCRALFATE 1 GM/10 ML UDC PO SCH ×4 (08:31→20:39)
[2021-05-15 09:49] LABS: Hematocrit (blood only) 44.7 % (37-47); Hemoglobin 14.5 g/dL (12.0-16.0); Mean Corpuscular Hgb Conc 32.4 g/dL (32-36); Mean Corpuscular Volume 89.4 fL (80-100); Mean Platelet Volume 11.7 fL (7.4-10.4); Platelet Count 288 K/uL (130-400); RDW Coefficient of Variation 13.8 % (11.5-14.5); RDW Standard Deviation 45.3 fL (36.4-46.3); White Blood Count 5.54 K/uL (4.8-10.8)
[2021-05-15 10:46] LABS: BUN Creatinine Ratio 16.7 (10-20); Calcium 8.8 mg/dl (8.5-10.1); Creatinine Clr Calc Pharmacy 32.9 ml/min; Est GFR (African American) 47.4 ml/min; Est GFR (Non-African American) 40.9 ml/min
--- NOTE | 2021-05-15 15:45 | Electrocardiogram Report ---
Test Reason : Blood Pressure : / mmHG Vent. Rate : 080 BPM Atrial Rate : 075 BPM P-R Int : 000 ms QRS Dur : 086 ms QT Int : 398 ms P-R-T Axes : 000 111 064 degrees QTc Int : 459 ms Poor data quality, interpretation may be adversely affected Atrial fibrillation Right axis deviation Septal infarct , age undetermined Abnormal ECG No previous ECGs available Confirmed by Dawson Robertson ([id number]) on 05/15/2021 3:44:33 PM Referred By: Confirmed By:Dawson Robertson
[2021-05-15] MEDS: LATANOPROST 0.005% OP SOLN 2.5 ML BTL OPB SCH (20:39)
--- NOTE | 2021-05-15 20:40 | Hospitalist Progress Note ---
Date of Service May 15, 2021 Assessment & Plan (1) Upper GI bleed: Plan: Convincing story for upper GI bleed with black stools and supratherapeutic INR. That said, hgb remains stable, so likely not incredibly brisk rate of bleeding. - PPI bolus and gtt - it appears to have subsided. -GI team will hold off Upper Gi scope as it is not urgent. -INR is reversed. - GI consulted - INR reversed in ED with vitamin K. Defer PCC or FFP at this time given stable hgb despite a week of black stools. - Follow INR - Good peripheral IVs - Monitor CBC Now on famotidine, pantoprazole. Discussed anticoagulation: will transition warfarin to eliquis. D/W cardio and GI who agree, (2) Hypotension: Plan: BP as low as 86/56 in the ED. Improved with 1L NS bolus, so I think more hypovolemia from diarrhea rather than hemorrhagic shock (as evidenced by stable hgb). - Gentle IV fluids - Monitor BP - Hold HTN meds (3) COVID-19: Plan: Incidental finding on screening test. Unless diarrhea is considered a symptom, not symptomatic. Good O2 sat on room air. - Isolation precautions given unknown when she might have contracted Covid. - Monitor respiratory status (4) Diarrhea: Plan: Likely from blood acting as motility agent. - C. diff, O&P, and stool culture all ordered by ED; monitor results (5) Chronic kidney disease, stage 3 (moderate): Plan: Acute kidney failure on CKD. Cr baseline ~1.2 - 1.3; up to 2.3 on admission. - IV fluids given in the ED; continue gentle IV fluids (6) Chronic diastolic heart failure: Plan: Presently appears hypovolemic on exam. - Holding Lasix - IV fluids as above - Monitor volume status (7) Permanent atrial fibrillation: Plan: Follows with Dr. Dias. Seen this month and was very stable. Had discussed a DOAC, but patient deferred given things were going well. - Hold warfarin - Hold metoprolol for now; monitor HR - Cardiology consulted to discuss possibly holding anticoagulation going forward. -Switching to eliquis. (8) Mitral valve replaced: Plan: Bioprosthetic valve. Given bleeding, will defer anticoagulation at this time. - Cardiology as above (9) Coronary artery disease: Plan: Hx of CAD. - Holding cardiac meds for GI bleed (10) Hypertension: Plan: On variety of agents at home. - Holding all home agents for transient hypotension in the ED (11) Hypothyroidism: Plan: TSH was 1.25 in 08/2020. No signs/symptoms of hypo-/hyperthyroidism. - Continue home Synthroid 50 mcg - Repeat TSH in AM (12) GERD (gastroesophageal reflux disease): Plan: Not on PPI/H2 at home. - PPI IV as above (13) DVT prophylaxis: Plan: SCDs - Holding heparin for GI bleed and high INR Admission and Anticipated Discharge Date Admission Date: May 13, 2021 Subjective Patient reports feeling well. Her diarrhea continues to improve. Her stools are still watery but with less consistency. Review of Systems Review of Systems: All systems reviewed & are unremarkable except as noted in HPI & below Physical Exam Physical Exam: Constitutional: WD/WN, vitals as above Eyes: EOM intact bilaterally; no conjunctival abnormality ENMT: external ear and nose normal, oropharynx normal Neck: trachea midline, no thyromegaly normal visual inspection Respiratory: normal respiratory effort, lungs clear to auscultation no respiratory distress Cardiovascular: RRR, no murmur, no edema Gastrointestinal (Abdomen): Inspection/Auscultation: abdomen normal to inspection; abdomen not distended Musculoskeletal: no cyanosis or clubbing, extremities motor strength 5/5 Skin: no rashes, warm and dry Neurologic: moves all extremities and awake Psychiatric: Orientation: alert, oriented to person and cooperative Results & Data Results & Data ([facility]) Vital Signs (Past 12 Hours) Vital Signs Temp Pulse Pulse Pulse Resp BP Pulse Ox 05/15/21 19:16 37.6 C H 76 18 114/67 93 05/15/21 18:00 75 05/15/21 15:46 36.7 C 94 H 19 126/79 93 05/15/21 11:37 36.5 C 76 18 115/67 96 PG Care Time/CCT Total # of Minutes Spent Total Time Spent with Patient: Total time spent is greater than 50% in coordination of care (as documented) at patient's floor/unit and/or counseling patient: Coding Level of Care Code 72383 Subseq Hosp Care Lvl 3 Diagnoses Upper GI bleed K92.2 Hypotension I95.9 COVID-19 U07.1 Diarrhea R19.7 Chronic kidney disease, stage 3 (moderate) N18.3 Chronic diastolic heart failure I50.32 Permanent atrial fibrillation I48.21 Mitral valve replaced Z95.2 Coronary artery disease I25.10 Hypertension I10 Hypothyroidism E03.9 GERD (gastroesophageal reflux disease) K21.9 DVT prophylaxis Z29.9 Time Spent (min) 35
[2021-05-15] MEDS: traZODone HCL 50 MG TAB PO SCH (20:48)
[2021-05-15] MEDS: APIXABAN 5 MG TABLET PO SCH (21:55)
[2021-05-16] MEDS: PANTOprazole 40 MG in DEXTROSE 5% 100 ML IV SCH ×5 (01:51→22:20)
[2021-05-16] MEDS: LEVOTHYROXINE SODIUM 50 MCG TABLET PO SCH (06:06)
[2021-05-16 07:18] LABS: Hematocrit (blood only) 41.1 % (37-47); Hemoglobin 13.2 g/dL (12.0-16.0); Mean Corpuscular Hemoglobin 28.4 pg (25-34); Mean Corpuscular Hgb Conc 32.1 g/dL (32-36); Mean Corpuscular Volume 88.4 fL (80-100); Mean Platelet Volume 11.4 fL (7.4-10.4); Platelet Count 261 K/uL (130-400); RDW Coefficient of Variation 13.7 % (11.5-14.5); RDW Standard Deviation 44.2 fL (36.4-46.3); Red Blood Count 4.65 M/uL (4.2-5.4); White Blood Count 4.72 K/uL (4.8-10.8)
[2021-05-16 07:53] LABS: BUN Creatinine Ratio 11.9 (10-20); Calcium 8.6 mg/dl (8.5-10.1); Creatinine Clr Calc Pharmacy 36.9 ml/min; Est GFR (African American) 54.4 ml/min; Potassium 4.5 mmol/L (3.5-5.1)
[2021-05-16] MEDS: FAMOTIDINE 20 MG in SYRINGE 3 ML IV SCH ×2 (08:44→19:36)
[2021-05-16] MEDS: PSYLLIUM 58.6% POWDER PACKET PO SCH (08:45)
[2021-05-16] MEDS: SUCRALFATE 1 GM/10 ML UDC PO SCH ×4 (08:45→19:39)
[2021-05-16] MEDS: DONEPEZIL HCL 5 MG TAB PO SCH (08:45)
[2021-05-16] MEDS: DORZOLAMIDE/TIMOLOL 22.3/6.8MG/ML 10 ML BTL OPB SCH ×2 (08:46→19:38)
[2021-05-16] MEDS: SERTRALINE HCL 50 MG TABLET PO SCH (08:46)
[2021-05-16] MEDS: APIXABAN 5 MG TABLET PO SCH ×2 (08:47→19:38)
[2021-05-16] MEDS: LATANOPROST 0.005% OP SOLN 2.5 ML BTL OPB SCH (19:39)
[2021-05-16] MEDS: traZODone HCL 50 MG TAB PO SCH (19:40)
--- NOTE | 2021-05-16 22:08 | Hospitalist Progress Note ---
Date of Service May 16, 2021 Assessment & Plan (1) Upper GI bleed: Plan: GI bleed likely due to anticoagulant therapy causing supratherapeutic INR Convincing story for upper GI bleed with black stools and supratherapeutic INR. That said, hgb remains stable, so likely not incredibly brisk rate of bleeding. - PPI bolus and gtt - it appears to have subsided. -GI team will hold off Upper Gi scope as it is not urgent. -INR is reversed. - GI consulted - INR reversed in ED with vitamin K. Defer PCC or FFP at this time given stable hgb despite a week of black stools. - Follow INR - Good peripheral IVs - Monitor CBC Now on famotidine, pantoprazole. Discussed anticoagulation: will transition warfarin to eliquis. D/W cardio and GI who agree, Hemoglobin has been relatively stable after restarting anticoagulant. will continue to monitor. Blood pressure has been soft however. (2) Hypotension: Plan: BP as low as 86/56 in the ED. Improved with 1L NS bolus, so I think more hypovolemia from diarrhea rather than hemorrhagic shock (as evidenced by stable hgb). - Gentle IV fluids - Monitor BP - Hold HTN meds (3) COVID-19: Plan: Incidental finding on screening test. Unless diarrhea is considered a symptom, not symptomatic. Good O2 sat on room air. - Isolation precautions given unknown when she might have contracted Covid. - Monitor respiratory status (4) Diarrhea: Plan: Likely from blood acting as motility agent. - C. diff, O&P, and stool culture all ordered by ED; monitor results (5) Chronic kidney disease, stage 3 (moderate): Plan: Acute kidney failure on CKD. Cr baseline ~1.2 - 1.3; up to 2.3 on admission. - IV fluids given in the ED; continue gentle IV fluids (6) Chronic diastolic heart failure: Plan: Presently appears hypovolemic on exam. - Holding Lasix - IV fluids as above - Monitor volume status (7) Permanent atrial fibrillation: Plan: Follows with Dr. Dias. Seen this month and was very stable. Had discussed a DOAC, but patient deferred given things were going well. - Hold warfarin - Hold metoprolol for now; monitor HR - Cardiology consulted to discuss possibly holding anticoagulation going forward. -Switching to eliquis. (8) Mitral valve replaced: Plan: Bioprosthetic valve. Given bleeding, will defer anticoagulation at this time. - Cardiology as above (9) Coronary artery disease: Plan: Hx of CAD. - Holding cardiac meds for GI bleed (10) Hypertension: Plan: On variety of agents at home. - Holding all home agents for transient hypotension in the ED (11) Hypothyroidism: Plan: TSH was 1.25 in 08/2020. No signs/symptoms of hypo-/hyperthyroidism. - Continue home Synthroid 50 mcg - Repeat TSH in AM (12) GERD (gastroesophageal reflux disease): Plan: Not on PPI/H2 at home. - PPI IV as above (13) DVT prophylaxis: Plan: SCDs - Holding heparin for GI bleed and high INR Admission and Anticipated Discharge Date Admission Date: May 13, 2021 Subjective Patient reports that her diarrhea has improved. Review of Systems Review of Systems: All systems reviewed & are unremarkable except as noted in HPI & below Physical Exam Physical Exam: Constitutional: WD/WN, vitals as above Eyes: EOM intact bilaterally; no conjunctival abnormality ENMT: external ear and nose normal, oropharynx normal Neck: trachea midline, no thyromegaly normal visual inspection Respiratory: normal respiratory effort, lungs clear to auscultation no respiratory distress Cardiovascular: RRR, no murmur, no edema Gastrointestinal (Abdomen): Inspection/Auscultation: abdomen normal to inspection; abdomen not distended Musculoskeletal: no cyanosis or clubbing, extremities motor strength 5/5 Skin: no rashes, warm and dry Neurologic: moves all extremities and awake Psychiatric: Orientation: alert, oriented to person and cooperative Results & Data Results & Data ([facility]) Vital Signs (Past 12 Hours) Vital Signs Temp Pulse Resp BP Pulse Ox 05/16/21 19:10 37.4 C 69 17 103/65 94 05/16/21 15:36 36.8 C 75 18 124/68 93 05/16/21 11:49 36.8 C 72 18 111/64 94 PG Care Time/CCT Total # of Minutes Spent Total Time Spent with Patient: Total time spent is greater than 50% in coordination of care (as documented) at patient's floor/unit and/or counseling patient: Coding Level of Care Code 07714 Subseq Hosp Care Lvl 2 Diagnoses Upper GI bleed K92.2 Hypotension I95.9 COVID-19 U07.1 Diarrhea R19.7 Chronic kidney disease, stage 3 (moderate) N18.3 Chronic diastolic heart failure I50.32 Permanent atrial fibrillation I48.21 Mitral valve replaced Z95.2 Coronary artery disease I25.10 Hypertension I10 Hypothyroidism E03.9 GERD (gastroesophageal reflux disease) K21.9 DVT prophylaxis Z29.9
[2021-05-17] MEDS: PANTOprazole 40 MG in DEXTROSE 5% 100 ML IV SCH ×5 (02:46→21:28)
[2021-05-17] MEDS: LEVOTHYROXINE SODIUM 50 MCG TABLET PO SCH (06:21)
[2021-05-17] MEDS: DORZOLAMIDE/TIMOLOL 22.3/6.8MG/ML 10 ML BTL OPB SCH ×2 (08:40→20:37)
[2021-05-17] MEDS: SUCRALFATE 1 GM/10 ML UDC PO SCH ×4 (08:40→20:37)
[2021-05-17] MEDS: SERTRALINE HCL 50 MG TABLET PO SCH (08:40)
[2021-05-17] MEDS: PSYLLIUM 58.6% POWDER PACKET PO SCH (08:40)
[2021-05-17] MEDS: FAMOTIDINE 20 MG in SYRINGE 3 ML IV SCH ×2 (08:40→20:37)
[2021-05-17] MEDS: DONEPEZIL HCL 5 MG TAB PO SCH (08:40)
[2021-05-17] MEDS: APIXABAN 5 MG TABLET PO SCH ×2 (08:40→20:36)
[2021-05-17 10:00] LABS: Hematocrit (blood only) 41.4 % (37-47); Hemoglobin 13.3 g/dL (12.0-16.0); Mean Corpuscular Hemoglobin 28.7 pg (25-34); Mean Corpuscular Hgb Conc 32.1 g/dL (32-36); Mean Corpuscular Volume 89.4 fL (80-100); Mean Platelet Volume 11.1 fL (7.4-10.4); Platelet Count 314 K/uL (130-400); RDW Coefficient of Variation 13.8 % (11.5-14.5); Red Blood Count 4.63 M/uL (4.2-5.4); White Blood Count 5.56 K/uL (4.8-10.8)
[2021-05-17] MEDS: LATANOPROST 0.005% OP SOLN 2.5 ML BTL OPB SCH (20:37)
[2021-05-17] MEDS: traZODone HCL 50 MG TAB PO SCH (21:28)
--- NOTE | 2021-05-17 22:11 | Hospitalist Progress Note ---
Date of Service May 17, 2021 Assessment & Plan (1) Upper GI bleed: Plan: GI bleed likely due to anticoagulant therapy causing supratherapeutic INR Convincing story for upper GI bleed with black stools and supratherapeutic INR. That said, hgb remains stable, so likely not incredibly brisk rate of bleeding. - PPI bolus and gtt - it appears to have subsided. -GI team will hold off Upper Gi scope as it is not urgent. -INR is reversed. - GI consulted - INR reversed in ED with vitamin K. Defer PCC or FFP at this time given stable hgb despite a week of black stools. - Follow INR - Good peripheral IVs - Monitor CBC Now on famotidine, pantoprazole. Discussed anticoagulation: will transition warfarin to eliquis. D/W cardio and GI who agree, Hemoglobin has been relatively stable after restarting anticoagulant. will continue to monitor. Blood pressure has been soft however. will hold off restarting blood pressure medications. (2) Hypotension: Plan: BP as low as 86/56 in the ED. Improved with 1L NS bolus, so I think more hypovolemia from diarrhea rather than hemorrhagic shock (as evidenced by stable hgb). - Gentle IV fluids - Monitor BP - Hold HTN meds (3) COVID-19: Plan: Incidental finding on screening test. Unless diarrhea is considered a symptom, not symptomatic. Good O2 sat on room air. - Isolation precautions given unknown when she might have contracted Covid. - Monitor respiratory status (4) Diarrhea: Plan: Likely from blood acting as motility agent. - C. diff, O&P, and stool culture all ordered by ED; monitor results (5) Chronic kidney disease, stage 3 (moderate): Plan: Acute kidney failure on CKD. Cr baseline ~1.2 - 1.3; up to 2.3 on admission. - IV fluids given in the ED; continue gentle IV fluids (6) Chronic diastolic heart failure: Plan: Presently appears hypovolemic on exam. - Holding Lasix - IV fluids as above - Monitor volume status (7) Permanent atrial fibrillation: Plan: Follows with Dr. Dias. Seen this month and was very stable. Had discussed a DOAC, but patient deferred given things were going well. - Hold warfarin - Hold metoprolol for now; monitor HR - Cardiology consulted to discuss possibly holding anticoagulation going forward. -Switching to eliquis. (8) Mitral valve replaced: Plan: Bioprosthetic valve. Given bleeding, will defer anticoagulation at this time. - Cardiology as above (9) Coronary artery disease: Plan: Hx of CAD. - Holding cardiac meds for GI bleed (10) Hypertension: Plan: On variety of agents at home. - Holding all home agents for transient hypotension in the ED (11) Hypothyroidism: Plan: TSH was 1.25 in 08/2020. No signs/symptoms of hypo-/hyperthyroidism. - Continue home Synthroid 50 mcg - Repeat TSH in AM (12) GERD (gastroesophageal reflux disease): Plan: Not on PPI/H2 at home. - PPI IV as above (13) DVT prophylaxis: Plan: SCDs - Holding heparin for GI bleed and high INR Admission and Anticipated Discharge Date Admission Date: May 13, 2021 Subjective 85 yo female reports feeling well. Review of Systems Review of Systems: All systems reviewed & are unremarkable except as noted in HPI & below Physical Exam Physical Exam: Constitutional: WD/WN, vitals as above Eyes: EOM intact bilaterally; no conjunctival abnormality ENMT: external ear and nose normal, oropharynx normal Neck: trachea midline, no thyromegaly normal visual inspection Respiratory: normal respiratory effort, lungs clear to auscultation no respiratory distress Cardiovascular: RRR, no murmur, no edema Gastrointestinal (Abdomen): Inspection/Auscultation: abdomen normal to inspection; abdomen not distended Musculoskeletal: no cyanosis or clubbing, extremities motor strength 5/5 Skin: no rashes, warm and dry Neurologic: moves all extremities and awake Psychiatric: Orientation: alert, oriented to person and cooperative Results & Data Results & Data ([facility]) Vital Signs (Past 12 Hours) Vital Signs Temp Pulse Resp BP Pulse Ox 05/17/21 19:56 37.6 C H 76 20 114/66 95 05/17/21 15:18 37.6 C H 78 18 131/67 94 05/17/21 11:38 36.8 C 69 18 114/69 95 PG Care Time/CCT Total # of Minutes Spent Total Time Spent with Patient: Total time spent is greater than 50% in coordination of care (as documented) at patient's floor/unit and/or counseling patient: Coding Level of Care Code 08288 Subseq Hosp Care Lvl 2 Diagnoses Upper GI bleed K92.2 Hypotension I95.9 COVID-19 U07.1 Diarrhea R19.7 Chronic kidney disease, stage 3 (moderate) N18.3 Chronic diastolic heart failure I50.32 Permanent atrial fibrillation I48.21 Mitral valve replaced Z95.2 Coronary artery disease I25.10 Hypertension I10 Hypothyroidism E03.9 GERD (gastroesophageal reflux disease) K21.9 DVT prophylaxis Z29.9 Time Spent (min) 25
[2021-05-18] MEDS: PANTOprazole 40 MG in DEXTROSE 5% 100 ML IV SCH ×2 (03:12→09:47)
[2021-05-18] MEDS: LEVOTHYROXINE SODIUM 50 MCG TABLET PO SCH (05:32)
[2021-05-18 07:11] LABS: Albumin Level 2.2 gm/dl (3.4-5.0); BUN Creatinine Ratio 7.9 (10-20); Calcium 8.5 mg/dl (8.5-10.1); Creatinine Clr Calc Pharmacy 34.7 ml/min; Est GFR (African American) 53.2 ml/min; Est GFR (Non-African American) 45.9 ml/min; Potassium 3.9 mmol/L (3.5-5.1)
[2021-05-18 07:14] LABS: Albumin Globulin Ratio 0.7 (0.9-2); Bilirubin,Total 1.1 mg/dl (0.2-1); Globulin 3.1 gm/dl (2.5-4.0); Total Protein 5.3 gm/dl (6.4-8.2)
[2021-05-18 07:59] VITALS: TEMP 99.1; O2SAT 95
[2021-05-18 09:37] VITALS: BP 105/53; PULSE 94
[2021-05-18] MEDS: DONEPEZIL HCL 5 MG TAB PO SCH (09:47)
[2021-05-18] MEDS: APIXABAN 5 MG TABLET PO SCH (09:47)
[2021-05-18] MEDS: SERTRALINE HCL 50 MG TABLET PO SCH (09:47)
[2021-05-18] MEDS: FAMOTIDINE 20 MG in SYRINGE 3 ML IV SCH (09:48)
[2021-05-18] MEDS: SUCRALFATE 1 GM/10 ML UDC PO SCH (09:48)
[2021-05-18] MEDS: DORZOLAMIDE/TIMOLOL 22.3/6.8MG/ML 10 ML BTL OPB SCH (09:48)
[2021-05-18] MEDS: PSYLLIUM 58.6% POWDER PACKET PO SCH (09:48)
--- NOTE | 2021-05-19 07:46 | Discharge Summary ---
Date of Service May 18, 2021 Admission HPI Per Admitting Provider 85yo F w/ hx of afib and bioprosthetic mitral valve who presents with likely upper GI bleed. The patient reports that approx. 1 week ago she started to have watery, black diarrhea. She cannot pinpoint any inciting food or other cause. She has not taken any medications for it. She reports about 5 episodes per day, including overnight that have woken her up from sleep. It has not gotten much better or worse. She reports some loss of appetite, partially due to worrying about having to have BMs. She denies any abdominal pain, any nausea or vomiting, no other bleeding. No shortness of breath, no cough. No fevers/chills, or sweats. Principal Diagnosis upper GI bleed Discharge Exam Constitutional: WD/WN, vitals as above Eyes: EOM intact bilaterally; no conjunctival abnormality ENMT: external ear and nose normal, oropharynx normal Neck: trachea midline, no thyromegaly normal visual inspection Respiratory: normal respiratory effort, lungs clear to auscultation no respiratory distress Cardiovascular: RRR, no murmur, no edema Gastrointestinal (Abdomen): Inspection/Auscultation: abdomen normal to i nspection; abdomen not distended Musculoskeletal: no cyanosis or clubbing, extremities motor strength 5/5 Skin: no rashes, warm and dry Neurologic: moves all extremities and awake Psychiatric: Orientation: alert, oriented to person and cooperative Discharge Data Allergies Allergy/AdvReac Type Severity Reaction Status Date / Time No Known Drug Allergies Allergy nkda Verified 05/13/21 16:25 Consultations 05/13/21 19:11 Consult Cardiology Routine Consult Gastroenterology Routine Hospital Course (1) Upper GI bleed: GI bleed likely due to anticoagulant therapy causing supratherapeutic INR Convincing story for upper GI bleed with black stools and supratherapeutic INR. That said, hgb remains stable, so likely not incredibly brisk rate of bleeding. - PPI bolus and gtt - it appears to have subsided. -GI team will hold off Upper Gi scope as it is not urgent. -INR is reversed. - GI consulted - INR reversed in ED with vitamin K. Defer PCC or FFP at this time given stable hgb despite a week of black stools. - Follow INR - Good peripheral IVs - Monitor CBC Now on famotidine, pantoprazole. Discussed anticoagulation: will transition warfarin to eliquis. D/W cardio and GI who agree, Hemoglobin has been relatively stable after restarting anticoagulant. will continue to monitor. Blood pressure has been soft however. will hold off restarting blood pressure medications except for beta uriel due to atrial fibrillation. Held lasix at discharge. (2) Hypotension: BP as low as 86/56 in the ED. Improved with 1L NS bolus, so I think more hypovolemia from diarrhea rather than hemorrhagic shock (as evidenced by stable hgb). - Gentle IV fluids - Monitor BP - Hold HTN meds (3) COVID-19: Incidental finding on screening test. Unless diarrhea is considered a symptom, not symptomatic. Good O2 sat on room air. - Isolation precautions given unknown when she might have contracted Covid. - Monitor respiratory status (4) Diarrhea: Likely from blood acting as motility agent. - C. diff, O&P, and stool culture all ordered by ED; monitor results (5) Chronic kidney disease, stage 3 (moderate): Acute kidney failure on CKD. Cr baseline ~1.2 - 1.3; up to 2.3 on admission. - IV fluids given in the ED; continue gentle IV fluids (6) Chronic diastolic heart failure: Presently appears hypovolemic on exam. - Holding Lasix - IV fluids as above (7) Permanent atrial fibrillation: Follows with Dr. Dias. Seen this month and was very stable. Had discussed a DOAC, but patient deferred given things were going well. - Hold warfarin - Hold metoprolol for now; monitor HR - Cardiology consulted to discuss possibly holding anticoagulation going forward. -Switching to eliquis. (8) Mitral valve replaced: Bioprosthetic valve. Given bleeding, will defer anticoagulation at this time. - Cardiology as above (9) Coronary artery disease: Hx of CAD. - Held cardiac meds for GI bleed (10) Hypertension: On variety of agents at home. - Holding all home agents for now until f/u wit PCP. (11) Hypothyroidism: TSH was 1.25 in 08/2020. No signs/symptoms of hypo-/hyperthyroidism. - Continue home Synthroid 50 mcg (12) GERD (gastroesophageal reflux disease): Not on PPI/H2 at home. - PPI IV as above (13) DVT prophylaxis: SCDs - Holding heparin for GI bleed and high INR Total Time Total Time Spent Total Time Spent (In Minutes): 32 Discharge Plan Discharge Items Patient Disposition: Home - Home Health Services Reason For Visit: UPPER GI BLEED, SUPRATHERAPEUTIC INR Discharge Diagnosis: eleavted INR Activity: Resume your previous activity Non-emergency contact: Primary Care Provider Call non-emergency contact if: you have any medication questions Follow-up/Referrals: Nina Christian, [Primary Care Provider] - 05/30/21 9:20 am (Please follow up with Dr. Christian on 05/30/21 at 9:20 am. Please arrive to the office at 9:05 am for your appointment. If you are unable to keep this appointment, please call the office to reschedule at [phone].) Diet: Regular Diet Texture: Dental soft (bite-sized) Addtl Attending Provider Instructions: Will recommend continuing with Protonix 40 mg twice a day, Famotidine 20 mg twice a day, & Carafate 1 gm four times daily before meals and bedtime. Continue to follow H/H and clinical symptoms, but it does not appear patient has a brisk bleed at the present time. Would avoid NSAIDs. Can consider EGD in 1 month for further evaluation unless clinically deteriorating. Recommend followup with your PCP in 1 week. Recommend rechecking hemoglobin in 1 week. I gave you about 7-10 day supplies of your medication your pharmacy, the rest were sent to the mail order. However Eliquis was only sent to your regular pharmacy as I gave you a 30 day coupon. Will defer refill to your PCP. Please stop taking your warfarin as Eliquis replaces it. Will hold your blood pressure medications as your blood presure has been normal. Pending Studies at Discharge: No Stand-Alone Forms: My [facility], Smoking Cessation Medications and DC Order Prescriptions: New Eliquis 5 mg Tablet 5 mg PO BID Qty: 60 RF: 0 famotidine 20 mg tablet 20 mg PO BID Qty: 60 RF: 0 pantoprazole 40 mg tablet,delayed release (DR/EC) 40 mg PO BID Qty: 60 RF: 0 famotidine 20 mg tablet 20 mg PO BID 7 Days Qty: 14 RF: 0 pantoprazole 40 mg tablet,delayed release (DR/EC) 40 mg PO BID 10 Days Qty: 20 RF: 0 sucralfate 1 gram tablet 1 g PO Q6H 7 Days Qty: 28 RF: 0 sucralfate 1 gram tablet 1 g PO Q6H 28 Days Qty: 112 RF: 0 Continued metoprolol succinate 25 mg tablet extended release 24 hr 25 mg PO DAILY Qty: 90 RF: 1 trazodone 50 mg tablet 25 mg PO HS Qty: 90 RF: 1 atorvastatin 80 mg tablet 80 mg PO DAILY Qty: 90 RF: 1 donepezil 5 mg tablet 5 mg PO DAILY 90 Days Qty: 90 RF: 1 levothyroxine 50 mcg tablet 50 mcg PO DAILY Qty: 90 RF: 1 calcium carbonate-vitamin D3 [Calcium 600 + D(3)] 600 mg(1,500mg) -200 unit tablet 1 tab PO BID Qty: 60 RF: 0 sertraline 25 mg tablet 50 mg PO DAILY RF: 0 alendronate [Fosamax] 70 mg tablet 70 mg PO WK RF: 0 latanoprost 0.005 % drops 1 drp OPB HS RF: 0 dorzolamide-timolol 22.3-6.8 mg/mL drops 1 drp OPB BID RF: 0 polyethylene glycol 3350 [Miralax] 17 gram/dose powder 17 gm PO DAILY PRN (Reason: Constipation) RF: 0 Discontinued amlodipine 5 mg tablet 5 mg PO BID Qty: 180 RF: 2 furosemide 20 mg tablet 10 mg PO DAILY Qty: 45 RF: 3 losartan 100 mg tablet 100 mg PO DAILY Qty: 90 RF: 1 spironolactone 25 mg tablet 12.5 mg PO DAILY Qty: 45 RF: 1 warfarin 2 mg tablet 2 mg PO UD RF: 0 Discharge Orders: Discharge Order (Routine); Ordered 05/18/21 Ordered By: Siva Douglass Admission Data Admit Date/Time: 05/13/21 16:44 Attending Provider: Siva Douglass Admit Provider: Edd Vicente Primary Care Provider: Nina Christian Other Providers: Godfrey Dias ; Parish Conner Other Interventions: Discharge Summary Assessment (RN) Last Done: 05/18/21 09:35 Coding Level of Care Code D/C DAY MANAGEMENT >30 MINS Diagnoses Upper GI bleed K92.2 Hypotension I95.9 COVID-19 U07.1 Diarrhea R19.7 Chronic kidney disease, stage 3 (moderate) N18.3 Chronic diastolic heart failure I50.32 Permanent atrial fibrillation I48.21 Mitral valve replaced Z95.2 Coronary artery disease I25.10 Hypertension I10 Hypothyroidism E03.9 GERD (gastroesophageal reflux disease) K21.9 DVT prophylaxis Z29.9
== END 2021-05-18 11:15 | disposition home health service (06) | DRG 813 ==
LOC: ED 12:38 → SUATTDRO 16:44 → 2S 16:44
DX: I50.32 Chronic diastolic (congestive) heart failure; I25.10 Atherosclerotic heart disease of native coronary artery without angina pectoris; I13.0 Hypertensive heart and chronic kidney disease with heart failure and stage 1 through stage 4 chronic kidney disease, or unspecified chronic kidney disease; I95.89 Other hypotension; N17.9 Acute kidney failure, unspecified; Y92.009 Unspecified place in unspecified non-institutional (private) residence as the place of occurrence of the external cause; N18.30 Chronic kidney disease, stage 3 unspecified; Z87.891 Personal history of nicotine dependence; Z95.3 Presence of xenogenic heart valve; J44.9 Chronic obstructive pulmonary disease, unspecified; J12.82 Pneumonia due to coronavirus disease 2019; U07.1 COVID-19; I48.21 Permanent atrial fibrillation; K21.9 Gastro-esophageal reflux disease without esophagitis; Z79.01 Long term (current) use of anticoagulants; E03.9 Hypothyroidism, unspecified; D68.32 Hemorrhagic disorder due to extrinsic circulating anticoagulants; T45.515A Adverse effect of anticoagulants, initial encounter